=== PATIENT | male | born 1970 | race Hispanic/Latino ===

== ENCOUNTER 2018-10-19 05:35 | Emergency (ER) | payer BC ==
[~2018-10-19] VITALS: Ht 182.9 cm; Wt 74.0 kg
[2018-10-19 05:54] VITALS: BP 170/111
--- NOTE | 2018-10-19 06:14 | NUR ---
XRAY CALLED RADOIOLOGY AND NOTIFIED OF ORDERS
[2018-10-19 06:32] LABS: BASOPHIL % 0.4 % (0.0-0.2); EOSINOPHIL # 0.4 10^3/uL (0.0-0.2); EOSINOPHIL % 4.4 % (0.0-5.0); HEMOGLOBIN 16.2 g/dL (13.9-16.3); LYMPHOCYTES # 2.4 10^3/uL (1.0-4.8); LYMPHOCYTES % 29.6 % (24.0-44.0); MEAN CELL HGB 33.6 pg (26-34); MEAN CELL HGB CONCENTRATION 34.6 g/dL (33-37); MEAN CORP VOLUME 97.1 fL (78-100); MEAN PLATELET VOLUME 10.3 fL (7.8-11.0); MONOCYTES # 1.4 10^3/uL (0.3-0.8); MONOCYTES % 18.1 % (5.0-12.0); NEUTROPHIL # 3.8 10^3/uL (1.8-7.7); NEUTROPHILS % 47.4 % (41.0-85.0); RED CELL DISTRIBUTION WIDTH 13.4 % (11.5-14.5); WHITE BLOOD CELL 7.9 10^3/uL (4.5-11.0)
--- NOTE | 2018-10-19 06:34 | PCM.EKG ---
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
--- NOTE | 2018-10-19 06:39 | ER.PDOC ---
General Chief Complaint: Trauma Stated Complaint: PAIN POST FALL Time seen by MD: 06:29 Source: patient Exam Limitations: no limitations History of Present Illness Initial Comments Patient fell out of his truck and landed on the fuel pump on his right side. Now with right sided chest pain, worse with deep breaths. Timing/Duration: 24 hours Severity/Quality: severe, sharp Prior CP/Workup: No Prior Chest Pain, No Prior Cardiac Workup Past Medical History Medical History: hypertension Family History Significant Family History: no pertinent family hx Social History Smoking: less than 1 pack/day Alcohol Use: heavy Drug Use: none Reviewed Nursing Reviewed: Vital Signs, Abn. Noted, Nursing Assessment Constitutional: no symptoms reported EENTM: no symptoms reported Respiratory: cough Cardiovascular: no symptoms reported Gastrointestinal: no symptoms reported Genitourinary: no symptoms reported Musculoskeletal: other (Right Sided Chest Pain) Skin: no symptoms reported Psychiatric/Neurological: no symptoms reported Endocrine: no symptoms reported Hematologic/Lymphatic: no symptoms reported All Other Systems: Reviewed and Negative Physical Exam General Appearance: Mild Distress (in pain) HEENT: PERRL/EOMI, Normal ENT Inspection, TMs Normal, Pharynx Normal Neck: Non-Tender, Full Range of Motion, Supple, Normal Inspection Respiratory: wheezing (mild diffuse), expiration, other (right lateral chest wall tenderness) Cardiovascular: Normal Peripheral Pulses, Regular Rate, Rhythm, No Edema, No Gallop, No JVD, No Murmur Gastrointestinal: Normal Bowel Sounds, No Organomegaly, No Pulsatile Mass, Non Tender, Soft Extremities: Normal Range of Motion, Non-Tender, Normal Inspection, No Pedal Edema, No Calf Tenderness, Normal Capillary Refill 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 Manoj Paris at shift change. EKG/XRAY/CT/US XRAY Comments: Fracture of right 11th rib Departure Time of Disposition: 08:06 Disposition: 01 HOME, SELF-CARE Impression: Primary Impression: Fracture, rib Condition: Stable Hospital Course Patient stable Referrals: PCP,UNKNOWN (PCP) PRIMARY CARE PROVIDER Additional Instructions: Tramadol F/U with your PCP in 1 week Duration or Time Spent with Pa: 45 mins Problem Qualifiers Primary Impression: Fracture, rib Encounter type: initial encounter Rib fracture type: single rib Fracture type: closed Laterality: right Qualified Codes: S22.31XA - Fracture of one rib, right side, initial encounter for closed fracture NICOLE SHUKLA DO Oct 19, 2018 06:39 MANOJ PARIS MD Oct 19, 2018 08:09
[2018-10-19] MEDS ORDERED: DUONEB 0.5 MG-3 MG/3 ML SOLN IH STA (06:40)
[2018-10-19] MEDS ORDERED: TORADOL ONE (06:42)
[2018-10-19 06:53] LABS: ALANINE AMINOTRANSFERASE(ML) 24 U/L (12-78); ALKALINE PHOSPHATASE 65 U/L (50-136); ASPARTATE AMINO TRANSFERASE 19 U/L (0-35); CALCIUM 8.9 mg/dL (8.4-10.5); CARBON DIOXIDE 21.6 mmol/L (20.0-32); GLUCOSE 105 mg/dL (70-110)
[2018-10-19] MEDS ORDERED: DECADRON ONE (06:57)
[2018-10-19] MEDS ORDERED: DUONEB 0.5 MG-3 MG/3 ML SOLN IH ONE (06:57)
[2018-10-19] MEDS ORDERED: TORADOL IM ONE (07:00)
--- NOTE | 2018-10-19 07:54 | DIREP ---
PROCEDURE:XRAY RIBS W/PA CHEST 3VWS-RT COMPARISON:None. INDICATIONS:fall with rib pain FINDINGS: RIBS:Fracture of the right 11th rib posterolaterally. OTHER:Linear atelectasis in the right lung base. CONCLUSION:Fracture of the right 11th rib. Dictated by: Anson Wood M.D. on 10/19/2018 at 07:47 AM
[2018-10-19 08:20] VITALS: BP 152/99
--- NOTE | 2018-10-19 08:20 | NUR ---
DISCHARGE PT ACTUALLY WAS DISCHARGED AT 0820.
[2018-10-19 08:29] VITALS: BP 152/99
== END 2018-10-19 07:56 | disposition home or self-care (01) ==
LOC: ER 05:35
DX: S22.31XA Fracture of one rib, right side, initial encounter for closed fracture (principal); I10 Essential (primary) hypertension; F17.210 Nicotine dependence, cigarettes, uncomplicated; W17.89XA Other fall from one level to another, initial encounter; Y93.89 Activity, other specified; Y92.488 Other paved roadways as the place of occurrence of the external cause; Y99.8 Other external cause status
CPT/HCPCS: 36415; 71101; 80053; 82550; 84484; 85025; 93005; 94799; 96372; 99285; J1885; J7620; J1100